=== PATIENT | male | born 2000 | race Hispanic/Latino ===

== ENCOUNTER 2019-09-23 12:52 | Emergency (ER) | payer SELFPAY ==
[2019-09-23] MEDS ORDERED: CORTISPORIN OTI10 ML AD (14:37)
[2019-09-23 14:41] VITALS: BP 121/77
== END 2019-09-23 14:52 | disposition home or self-care (01) | DRG 156 ==
LOC: EDBD 12:52 → ED 12:52
PROC: 09C3XZZ Extirpation of Matter from Right External Auditory Canal, External Approach (ICD-10-PCS; principal; 2019-09-23)
DX: T16.1XXA Foreign body in right ear, initial encounter (principal); X58.XXXA Exposure to other specified factors, initial encounter